=== PATIENT | male | born 1985 | race Two or more races ===

== ENCOUNTER 2023-02-15 16:50 | Emergency (ER) | payer MEDICAID, OTHER ==
[~2023-02-15] VITALS: Ht 177.8 cm; Wt 70.0 kg
[2023-02-15] MEDS ORDERED: CEPH-510 PO (17:34)
[2023-02-15] MEDS ORDERED: TRIA0.1O TOP (17:34)
[2023-02-15 17:38] VITALS: BP 132/81
== END 2023-02-15 17:49 | disposition home or self-care (01) ==
LOC: ER 16:50
DX: S60.562A Insect bite (nonvenomous) of left hand, initial encounter (principal); S60.561A Insect bite (nonvenomous) of right hand, initial encounter; L84 Corns and callosities; W57.XXXA Bitten or stung by nonvenomous insect and other nonvenomous arthropods, initial encounter; Y93.89 Activity, other specified; Y92.89 Other specified places as the place of occurrence of the external cause; Y99.8 Other external cause status